=== PATIENT | female | born 1990 | race Hispanic/Latino ===

== ENCOUNTER 2017-03-29 09:27 | Emergency (ER) | payer OTHER ==
[~2017-03-29] VITALS: Ht 160 cm; Wt 78.0 kg
--- NOTE | 2017-03-29 10:46 | Diagnostic Imaging Report ---
EXAM: KNEE RIGHT THREE VIEWS DATE: 03/29/2017 9:42 AM INDICATION: Pain COMPARISON: None FINDINGS: No acute fracture or subluxation identified. No significant degenerative changes present. Moderate effusion present on crosstable lateral view. IMPRESSION: Moderate effusion. Signed by: Dr. Gabriel Whyte MD on 03/29/2017 10:42 AM
[2017-03-29 11:35] VITALS: BP 106/71
== END 2017-03-29 12:03 | disposition home or self-care (01) ==
LOC: ER 09:27
DX: M25.561 Pain in right knee (principal); M25.461 Effusion, right knee; Q24.8 Other specified congenital malformations of heart
CPT/HCPCS: 99283

== ENCOUNTER 2018-05-23 14:00 | Emergency (ER) | payer BC ==
[~2018-05-23] VITALS: Ht 160 cm; Wt 78.0 kg
--- OUTSIDE RECORDS SUMMARY | 2018-05-23 14:03 | XMS REPORT ---
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 Allergies, Adverse Reactions, Alerts This patient has no known allergies or adverse reactions. Medications This patient has no known medications. Results Test Description Test Time Test Comments Text Results Atomic Results Result Comments KNEE RIGHT THREE VIEWS [place] [address] Patient Name: EDUARDO CORTEZ MR #: [id number] : 1990 Age/Sex: 26/F Req #: [id number] Adm Physician: Ordered by: JESSICA ROJAS MD Report #: [id number] Location: ER Room/Bed: Procedure: [id number] DX/KNEE RIGHT THREE VIEWS Exam Date: Exam Time: REPORT STATUS: Signed EXAM: KNEE RIGHT THREE VIEWS DATE: 03/29/2017 9:42 AM INDICATION: Pain COMPARISON: None FINDINGS: No acute fracture or subluxation identified. No significant degenerative changes present. Moderate effusion present on crosstable lateral view. IMPRESSION: Moderate effusion. Signed by: Dr. Gabriel Aleman MD on 03/29/2017 10:42 AM Dictated By: GABRIEL ALEMAN MD [id number] Transcribed By: KELSIE on 03/29/17 1042 COPY TO: JESSICA ROJAS MD
--- NOTE | 2018-05-23 14:10 | NUR ---
SYSTOLIC MURMUR NOTED BY ER
--- NOTE | 2018-05-23 15:15 | Diagnostic Imaging Report ---
EXAMINATION: CHEST 2 VIEWS INDICATION: ^CP ^[id number] ^1420 COMPARISON: None FINDINGS: PA and lateral views TUBES and LINES: None. LUNGS: Lungs are well inflated. Lungs are clear. There is no evidence of pneumonia or pulmonary edema. PLEURA: No pleural effusion or pneumothorax. HEART AND MEDIASTINUM: The cardiac silhouette is enlarged. Surgical metallic ring overlying the region of the pulmonary arteries/PDA BONES AND SOFT TISSUES: Intact median sternotomy wires. Soft tissues are unremarkable. UPPER ABDOMEN: No free air under the diaphragm. IMPRESSION: Cardiomegaly without pulmonary decompensation. Signed by: Dr. Anna Jones M.D. on 05/23/2018 3:12 PM
[2018-05-23 17:25] LABS: BASOPHILS % 0.4 % (0.0-1.0); EOSINOPHILS # (AUTO) 0.1 (0.0-0.4); HEMATOCRIT 41.8 % (34.2-44.1); HEMOGLOBIN 14.1 g/dL (12.0-16.0); LYMPHOCYTES # (AUTO) 1.2 (1.0-3.2); LYMPHOCYTES % 17.5 % (18.0-39.1); MEAN CORPUSCULAR HEMOGLOBIN 28.5 pg (28-32); MEAN CORPUSCULAR HGB CONC 33.7 g/dL (31-35); MEAN CORPUSCULAR VOLUME 84.4 fL (81-99); MONOCYTES # (AUTO) 0.6 (0.2-0.8); MONOCYTES % 8.5 % (4.4-11.3); NEUTROPHILS # (AUTO) 4.9 (2.1-6.9); NEUTROPHILS % 72.5 % (38.7-80.0); PLATELET COUNT 200 x10e3/uL (140-360); RED BLOOD COUNT 4.95 x10e6/uL (3.6-5.1)
[2018-05-23 17:29] LABS: BILIRUBIN,URINE NEGATIVE (NEGATIVE); CLARITY,URINE CLEAR (CLEAR); COLOR,URINE YELLOW (YELLOW); KETONES,URINE NEGATIVE (NEGATIVE); LEUKOCYTE ESTERASE ,URINE NEGATIVE (NEGATIVE); NITRITE,URINE NEGATIVE (NEGATIVE); PROTEIN,URINE DIPSTICK NEGATIVE (NEGATIVE); URINE UROBILINOGEN 0.2 mg/dL (0.2 - 1)
[2018-05-23 17:30] LABS: PREGNANCY TEST, URINE NEGATIVE (NEGATIVE)
[2018-05-23 17:32] LABS: INR 1.01; PROTHROMBIN TIME 14.2 seconds (11.9-14.5)
[2018-05-23 17:33] LABS: PARTIAL THROMBOPLASTIN TIME 36.3 seconds (23.8-35.5)
[2018-05-23 17:42] LABS: ALANINE AMINOTRANSFERASE 18 IU/L (0-55); ALBUMIN 4.6 g/dL (3.5-5.0); ALBUMIN/GLOBULIN RATIO 1.7 (0.8-2.0); ALKALINE PHOSPHATASE 55 IU/L (40-150); ANION GAP 15.5 mmol/L (8-16); BLOOD UREA NITROGEN 11 mg/dL (7-26); BUN/CREATININE RATIO 16 (6-25); CALCIUM 9.8 mg/dL (8.4-10.2); CARBON DIOXIDE 22 mmol/L (22-29); CHLORIDE 104 mmol/L (98-107); CREATINE KINASE 57 IU/L (29-168); CREATININE, SERUM 0.69 mg/dL (0.57-1.11); EST GLOMERULAR FILTRATION RATE > 60 ML/MIN (60-); GLUCOSE 78 mg/dL (74-118); MAGNESIUM 2.1 MG/DL (1.3-2.1); POTASSIUM 3.5 mmol/L (3.5-5.1); SODIUM 138 mmol/L (136-145)
[2018-05-23 17:44] LABS: EPITHELIAL CELLS,URINE MANY /LPF
[2018-05-23 17:45] LABS: BACTERIA,URINE RARE /HPF; WBC,URINE (MAN) 0-5 /HPF (0-5)
[2018-05-23 18:53] VITALS: BP 122/75
== END 2018-05-23 19:58 | disposition home or self-care (01) ==
LOC: ER 14:00
DX: R07.89 Other chest pain (principal); M25.512 Pain in left shoulder; M79.622 Pain in left upper arm; S46.812A Strain of other muscles, fascia and tendons at shoulder and upper arm level, left arm, initial encounter; F41.9 Anxiety disorder, unspecified; Q24.8 Other specified congenital malformations of heart
CPT/HCPCS: 36415; 71046; 80053; 81001; 81025; 82550; 82553; 83735; 83880; 84484; 85025; 85610; 85730; 99284

== ENCOUNTER 2019-06-02 07:47 | Emergency (ER) | payer BC ==
[~2019-06-02] VITALS: Ht 160 cm; Wt 78.0 kg
[2019-06-02] MEDS ORDERED: SODIUM CHLORIDE 0.9% 1000ML 1,000 ML IV STA (07:52)
[2019-06-02] MEDS ORDERED: ASPIRIN 81 MG CHEW TAB PO ONE (08:00)
[2019-06-02 08:17] LABS: BASOPHILS % 0.7 % (0.0-1.0); EOSINOPHILS # (AUTO) 0.1 (0.0-0.4); EOSINOPHILS % 1.1 % (0.0-6.0); HEMOGLOBIN 14.2 g/dL (12.0-16.0); LYMPHOCYTES % 18.2 % (18.0-39.1); MEAN CORPUSCULAR HEMOGLOBIN 28.9 pg (28-32); MEAN CORPUSCULAR HGB CONC 32.3 g/dL (31-35); MEAN CORPUSCULAR VOLUME 89.6 fL (81-99); MONOCYTES # (AUTO) 0.4 (0.2-0.8); MONOCYTES % 6.7 % (4.4-11.3); NEUTROPHILS % 73.1 % (38.7-80.0); PLATELET COUNT 234 x10e3/uL (140-360); RED BLOOD COUNT 4.91 x10e6/uL (3.6-5.1); RED CELL DISTRIBUTION WIDTH 13.7 % (11.7-14.4)
[2019-06-02 08:36] LABS: ALANINE AMINOTRANSFERASE 26 IU/L (0-55); ALBUMIN 4.6 g/dL (3.5-5.0); ALBUMIN/GLOBULIN RATIO 1.6 (0.8-2.0); ALKALINE PHOSPHATASE 47 IU/L (40-150); ANION GAP 11.9 mmol/L (8-16); BLOOD UREA NITROGEN 9 mg/dL (7-26); BUN/CREATININE RATIO 13 (6-25); CALCIUM 9.4 mg/dL (8.4-10.2); CARBON DIOXIDE 25 mmol/L (22-29); CHLORIDE 106 mmol/L (98-107); CREATINE KINASE 44 IU/L (29-168); EST GLOMERULAR FILTRATION RATE > 60 ML/MIN (60-); GLUCOSE 98 mg/dL (74-118); POTASSIUM 3.9 mmol/L (3.5-5.1); SODIUM 139 mmol/L (136-145)
--- NOTE | 2019-06-02 08:50 | Diagnostic Imaging Report ---
EXAM: CHEST SINGLE (PORTABLE) DATE: 06/02/2019 7:52 AM INDICATION: Chest pain COMPARISON: 05/23/2018 FINDINGS: Again identified are post surgical changes from prior median sternotomy. The trachea is midline. The lungs are symmetrically expanded without evidence for large focal consolidation, pneumothorax, or significant pleural effusion. The cardiac silhouette remains enlarged. Surgical metallic ring again noted overlying the region of the pulmonary arteries/PDA. The pulmonary vasculature is not engorged. Mediastinal contours are unremarkable. No acute osseous abnormality is identified. IMPRESSION: No acute cardiopulmonary process identified. Cardiomegaly. Signed by: Dr. Herson Peguero MD on 06/02/2019 8:48 AM
[2019-06-02 09:09] LABS: AMPHETAMINES SCREEN,URINE NEGATIVE (NEGATIVE); BENZODIAZEPINES SCREEN,URINE NEGATIVE (NEGATIVE); CLARITY,URINE CLEAR (CLEAR); COLOR,URINE YELLOW (YELLOW); KETONES,URINE NEGATIVE (NEGATIVE); LEUKOCYTE ESTERASE ,URINE NEGATIVE (NEGATIVE); NITRITE,URINE NEGATIVE (NEGATIVE); PHENCYCLIDINE SCREEN,URINE NEGATIVE (NEGATIVE); PROTEIN,URINE DIPSTICK NEGATIVE (NEGATIVE)
[2019-06-02 09:10] LABS: BILIRUBIN,URINE NEGATIVE (NEGATIVE); PREGNANCY TEST, URINE NEGATIVE (NEGATIVE); URINE UROBILINOGEN 0.2 mg/dL (0.2 - 1)
[2019-06-02 09:24] LABS: BACTERIA,URINE MODERATE /HPF; EPITHELIAL CELLS,URINE RARE /LPF; RBC,URINE 0-5 /HPF (0-5)
--- NOTE | 2019-06-02 13:28 | Diagnostic Imaging Report ---
EXAM: CT Chest WITH contrast 06/02/2019 7:52 AM INDICATION: ^PE PROTOCOL ^[id number] ^1000 ^Y COMPARISON: Chest radiograph 06/02/2019 and 05/23/2018 TECHNIQUE: Spiral CT images of the chest were performed from the lung apices through the level of the adrenal glands after the IV contrast administration. Thin section reconstructions were obtained with special concentration on the pulmonary arteries. IV CONTRAST: 100 mL of Isovue-370 ORAL CONTRAST: None COMPLICATIONS: None RADIATION DOSE: Total DLP: 519.2 mGy*cm Estimated effective dose: (DLP x 0.015 x size factor) mSv CTDIvol has been reviewed. It is below the limits set by the Radiation Protocol Committee (RPC). FINDINGS: LINES/ TUBES: None. PULMONARY ARTERIES: No filling defects are identified in the main, right or left pulmonary arteries to their segmental and subsegmental levels, to suggest pulmonary embolism. The main pulmonary artery is normal in size, measuring 2.2 cm in diameter. The right pulmonary artery mildly prominent measuring 2.3 cm in diameter while the left pulmonary arteries normal in size, measuring 1.8 cm in diameter. LUNGS AND AIRWAYS: Mild diffuse increased lung attenuation is suggestive of mild pulmonary edema. No consolidations or pulmonary nodules to suggest infection or inflammation. Airways are normal. PLEURA: The pleural spaces are clear. HEART AND MEDIASTINUM: The thyroid gland is normal. No mediastinal, hilar or axillary lymphadenopathy. Complex congenital heart disease, status post repair. There is a bioprosthetic pulmonary valve which appears well seated. Persistent left SVC draining into a dilated coronary sinus, measuring up to 2.6 cm in diameter. There is a normal SVC and IVC draining into the right atrium, which is moderately dilated. There is also an unusual location of an enlarged right atrial appendage to the left of the chest and posterior to the main pulmonary artery on series 2, image 41. Diffuse contrast reflux into dilated hepatic veins consistent with right-sided heart failure. Linear hyperdensity within the interatrial septum suggestive of possible ostium secundum ASD repair (series 2, image 57). The right ventricle and left ventricle are dilated. Moderate concentric right ventricular hypertrophy. The left atrium appears normal in size and has 2 right and 2 left pulmonary veins drain into the left atrial body. 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 There is no pericardial effusion. The thoracic aorta and pulmonary arteries are unremarkable. UPPER ABDOMEN: Unremarkable. BONES: Status post median sternotomy with intact wires. SOFT TISSUES: Unremarkable. IMPRESSION: No pulmonary embolism. Congenital heart disease, status post repair with bioprosthetic pulmonary valve, which appears well seated and possible ostium secundum ASD repair. Left-sided cardiac chambers are suboptimally evaluated due to lack of IV contrast. 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 Persistent left SVC. Signed by: Dr. Anna Jones M.D. on 06/02/2019 1:25 PM
[2019-06-02] MEDS ORDERED: SODIUM CHLORIDE 0.9% 50ML 50 ML ONE (14:35)
[2019-06-02] MEDS ORDERED: IOPAMIDOL 370 MG/ML 200 ML INFUS..BTL INJ ONE (14:35)
== END 2019-06-02 14:20 | disposition home or self-care (01) ==
LOC: ER 07:47
DX: R07.89 Other chest pain (principal); I50.82 Biventricular heart failure; Q22.0 Pulmonary valve atresia; I51.7 Cardiomegaly
CPT/HCPCS: 36415; 71045; 71260; 80053; 80307; 81001; 81025; 82550; 82553; 83880; 84484; 85025; 93005; 93306; 99284; J7030; Q9967